=== PATIENT | male | born 1955 | race Hispanic/Latino ===

== ENCOUNTER 2018-09-07 06:32 | Observation (INO) | payer MEDICARE ==
[2018-09-06 12:19] LABS: BASOPHILS % 0.3 % (0.0-1.0); EOSINOPHILS # (AUTO) 0.2 (0.0-0.4); EOSINOPHILS % 2.4 % (0.0-6.0); HEMATOCRIT 38.7 % (38.2-49.6); HEMOGLOBIN 12.2 g/dL (14.0-18.0); LYMPHOCYTES # (AUTO) 1.6 (1.0-3.2); LYMPHOCYTES % 15.8 % (18.0-39.1); MEAN CORPUSCULAR HEMOGLOBIN 26.9 pg (28-32); MEAN CORPUSCULAR HGB CONC 31.5 g/dL (31-35); MEAN CORPUSCULAR VOLUME 85.2 fL (81-99); MONOCYTES # (AUTO) 0.7 (0.2-0.8); MONOCYTES % 6.9 % (4.4-11.3); NEUTROPHILS # (AUTO) 7.4 (2.1-6.9); NEUTROPHILS % 73.9 % (38.7-80.0); PLATELET COUNT 258 x10e3/uL (140-360); RED BLOOD COUNT 4.54 x10e6/uL (4.3-5.7); RED CELL DISTRIBUTION WIDTH 15.4 % (11.7-14.4)
[2018-09-06 12:47] LABS: INR 0.94; PROTHROMBIN TIME 13.1 seconds (11.9-14.5)
[2018-09-06 12:57] LABS: ALBUMIN 3.4 g/dL (3.5-5.0); ALBUMIN/GLOBULIN RATIO 0.9 (0.8-2.0); ANION GAP 11.2 mmol/L (8-16); CALCIUM 10.2 mg/dL (8.4-10.2); CREATININE, SERUM 1.31 mg/dL (0.72-1.25)
[2018-09-06 12:58] LABS: POTASSIUM 5.2 mmol/L (3.5-5.1)
[~2018-09-07] VITALS: Ht 175.3 cm; Wt 138.0 kg
[2018-09-07] VITALS (18 sets, daily range): BP systolic 134–179; BP diastolic 67–90
[~2018-09-07 06:32] MED LIST: ADVAIR 500/501 EA INH; ASPIR 8181 MG; CARVEDILOL12.5 MG PO; FUROSEMIDE40 MG PO; GABAPENTIN300 MG PO; HYDRALAZINE HCL25 MG PO; LEVEMIR100 UNIT/1; LOSARTAN POTASS25 MG; METFORMIN HCL500 M2 PO; MONTELUKAST SOD10 MG PO; NITROGLYCERIN0.4 MG SL; NOVOLOG MI100 UNIT/1; PLAVIX75 MG PO; PRAVASTATIN SOD40 MG; SPIRONOLACTONE25 MG PO; TAMSULOSIN HCL0.4 MG; VENTOLIN HFA18 GM
--- OUTSIDE RECORDS SUMMARY | 2018-09-07 06:34 | XMS REPORT | Summary of Care ---
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) Hypertension(Confirm Active ed) Hypertriglyceridemia Active (Confirmed) Microalbuminuria(Con Active firmed) Morbid Active obesity(Confirmed) Polyneuropathy, Active unspecified(Confirme d) Nocturia(Confirmed) Active Erectile Active dysfunction(Confirme d) Hx of < 03/06/17 Resolved CABG(Confirmed) Peripheral Active edema(Confirmed) Peripheral vascular Active disease(Confirmed) Chronic obstructive Active pulmonary disease, unspecified(Confirme d) DM type 2 causing Active CKD stage 3(Confirmed) Type 2 diabetes Active mellitus, uncontrolled(Confirm ed) Allergies, Adverse Reactions, Alerts Substance Reaction Severity Status Tylenol with Codeine #31 Active iodine Active traMADol2 Active 1stomach issues 2stomach issues Medications metFORMIN 500 mg oral tablet 500 mg=1 tab, PO, BID-Meals, # 180 tab, 1 Refill(s), Pharmacy: [id number] Start Date: 06/17/17 Stop Date: 12/14/17 Status: Ordered pravastatin 40 mg oral tablet 40 mg=1 tab, PO, Bedtime, # 90 tab, 1 Refill(s), Pharmacy: [facility] [id number] 4 Start Date: 06/17/17 Stop Date: 12/14/17 Status: Ordered Results No data available for this section Immunizations Given and Recorded Vaccine Date Status Refusal Reason Hx influenza vaccine-unspecified 05/06/17 Recorded Procedures Procedure Date Related Diagnosis Body Site Percutaneous transluminal angioplasty of 05/2017 peripheral artery CABG - Coronary artery bypass graft 2010 Gallbladder excision Social History Social History Type Response Substance Abuse Use: Past. Type: Heroin. Recreational Drug Route: Inhaled, Oral. Previous Treatment: None. Employment/School Status: disability. Work/School description: lives with sister, from [place], has lived in [place]. Other: has daughter, has gf. Alcohol Current, Type Beer. Frequency: 3-5 times per week. Previous treatment: None. Alcohol use interferes with work or home: No. Drinks more than intended: No. Others hurt by drinking: No. Ready to change: Yes. Household alcohol concerns: No. Smoking Status Former smoker; Type: Cigarettes; Ready to change: No; Concerns about tobacco use in household: Yes; Lives with someone who smokes; Cigarette Smoking Last 365 Days No; Reg Smoking Cessation Counseling Yes Assessment and Plan No data available for this section
--- OUTSIDE RECORDS SUMMARY | 2018-09-07 06:34 | XMS REPORT | Summary of Care ---
Author Author [facility] Organization [facility] Address Unknown Phone Unavailable Encounter HQ Sybil_joaquim(FIN) [id number] Date(s): 11/12/17 - 11/12/17 [facility] [address], [address] [place], [place] [address]- [phone] Discharge Disposition: Home or Self Care Attending Physician: Jamaica Aparicio DO Vital Signs Most recent to 1 oldest [Reference Range]: Height 175.26 cm (11/12/17 1:53 PM) Temperature Oral 98.2 DegF [96.4-99.1 DegF] (11/12/17 1:53 PM) Blood Pressure 105/61 mmHg [90-140/60-90 mmHg] (11/12/17 1:53 PM) Respiratory Rate 16 BRMIN [14-20 BRMIN] (11/12/17 1:53 PM) Peripheral Pulse 72 bpm Rate [60-100 bpm] (11/12/17 1:53 PM) Weight 142.273 kg (11/12/17 1:53 PM) Body Mass Index 46.32 m2 (11/12/17 1:53 PM) Problem List Condition Effective Dates Status Health Status Informant Allergic Active dermatitis(Confirmed ) Allergic Active rhinitis(Confirmed) CAD (coronary artery Active disease)(Confirmed) BPH associated with Active nocturia(Confirmed) Chronic Active pain(Confirmed) Diabetic Active neuropathy(Confirmed ) Non-compliance(Confi Active rmed) Body mass index Active (BMI) 45.0-49.9, adult(Confirmed) Chronic Active GERD(Confirmed) 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) Hypertension(Confirm Active ed) Hypertriglyceridemia Active (Confirmed) Microalbuminuria(Con Active firmed) Morbid Active obesity(Confirmed) Erectile Active dysfunction(Confirme d) Hx of < 03/06/17 Resolved CABG(Confirmed) Peripheral Active edema(Confirmed) Peripheral vascular Active disease(Confirmed) Chronic obstructive Active pulmonary disease, unspecified(Confirme d) DM type 2 causing Active CKD stage 3(Confirmed) Type 2 diabetes Active mellitus, uncontrolled(Confirm ed) Allergies, Adverse Reactions, Alerts Substance Reaction Severity Status Tylenol with Codeine #31 Active iodine Active traMADol2 Active 1stomach issues 2stomach issues Medications betamethasone valerate topical 0.12% foam 1 appl, TOP, BID, X 14 day, # 100 gm, 0 Refill(s), Pharmacy: [facility] [id number] 24 Start Date: 11/12/17 Stop Date: 11/26/17 Status: Ordered Bydureon Kit 2 mg subcutaneous injection, extended release 2 mg=1 vial, SUB-Q, qWeek, # 4 vial, 5 Refill(s), Pharmacy: [facility] 272 4 Start Date: 11/12/17 Stop Date: 11/13/17 Status: Completed Bydureon Kit 2 mg subcutaneous injection, extended release 2 mg=1 vial, SUB-Q, qWeek, # 4 vial, 5 Refill(s), Pharmacy: [facility] 272 4 Start Date: 11/13/17 Status: Ordered montelukast 10 mg oral tablet 10 mg=1 tab, PO, Bedtime, # 90 tab, 1 Refill(s), Pharmacy: [id number] Start Date: 11/12/17 Status: Ordered Results No data available for this section Immunizations Given and Recorded Vaccine Date Status Refusal Reason Hx influenza vaccine-unspecified 05/06/17 Recorded Hx pneumococcal vaccine 07/06/16 Recorded Procedures Procedure Date Related Diagnosis Body Site Status Percutaneous transluminal angioplasty of 05/2017 Completed peripheral artery Colonoscopy 2015 Completed CABG - Coronary artery bypass graft 2009 Completed Gallbladder excision Completed Social History Social History Type Response Substance Abuse Use: Past. Type: Heroin. Recreational Drug Route: Inhaled, Oral. Previous Treatment: None. Employment/School Status: disability. Work/School description: lives with sister, from [place], has lived in [place]. Other: has daughter, has gf. Alcohol Current, [...] Days No; Reg Smoking Cessation Counseling Yes entered on: 11/12/17 Assessment and Plan No data available for this section
--- OUTSIDE RECORDS SUMMARY | 2018-09-07 06:34 | XMS REPORT | Continuity of Care Document ---
Author Author [facility] Address Unknown Phone Unavailable Problems Problem Status Onset Date Classification Date Reported Comments Source UNK Active 01/28/2018 [facility] Hx of CABG Resolved 03/06/2017 Problem 09/05/2018 [facility] Allergic rhinitis Active Problem 12/22/2017 [facility] CAD (<span ID="[id number]">Confirmed</span>) Active Problem 09/05/2018 [facility] BPH associated with nocturia Active Problem 09/05/2018 [facility] Chronic pain Active Problem 09/05/2018 [facility] Constipation Active Problem 10/17/2017 [facility] Non-compliance Active Problem 12/22/2017 [facility] Dermatitis Active Problem 09/05/2018 [facility] Chronic GERD Active Problem 09/05/2018 [facility] Combined systolic and diastolic heart failure Active Problem 09/05/2018 [facility] Hypertension Active Problem 09/05/2018 [facility] Hypertriglyceridemia Active Problem 09/05/2018 [facility] Microalbuminuria Active Problem 09/05/2018 [facility] Morbid obesity Active Problem 09/05/2018 [facility] Polyneuropathy, unspecified Active Problem 10/17/2017 [facility] Erectile dysfunction Active Problem 09/05/2018 [facility] Peripheral edema Active Problem 09/05/2018 [facility] Peripheral vascular disease Active Problem 09/05/2018 [facility] Chronic obstructive pulmonary disease, unspecified Active Problem 12/22/2017 [facility] DM type 2 causing CKD stage 3 Active Problem 12/22/2017 [facility] Type 2 diabetes mellitus, uncontrolled Active Problem 09/05/2018 [facility] Anemia of chronic disease Active Problem 09/05/2018 [facility] Chest pain Resolved Problem 09/05/2018 [facility] COPD (<span ID="[id number]">Confirmed</span>) Active Problem 09/05/2018 [facility] Diabetic neuropathy Active Problem 09/05/2018 [facility] Diabetic nephropathy Active Problem 09/05/2018 [facility] Body mass index 45.0-49.9, adult(<span ID="[id number]">Confirmed</span>) Active Problem 09/05/2018 [facility] Heart failure Resolved Problem 09/05/2018 [facility] Insomnia Active Problem 09/05/2018 [facility] Tremor Active Problem 09/05/2018 [facility] Allergic dermatitis Active Problem 12/22/2017 [facility] Nocturia Active Problem 06/21/2017 [facility] NAHUN (<span ID="[id number]">Confirmed</span>) Active Problem 08/06/2018 [facility] Medications Medication Details Route Status Patient Instructions Ordering Provider Order Date Source Trazodone Hydrochloride 50 MG Oral Tablet See Instructions, 1-3 tabs at bedtime prn insomnia, # 90 tab, 2 Refill(s), Pharmacy: [place] [id number] Active 07/30/2018 [facility] Mupirocin 0.02 MG/MG Topical Ointment 1 appl, TOP, BID, X 10 day, # 22 gm, 2 Refill(s), Pharmacy: [facility] Active 07/30/2018 [facility] DME Prescription See Instructions, MISC, ONCE, dispense 1 disability license plate, # 1 unit, 0 Refill(s) No Longer Active 02/16/2018 [facility] RELION INS SYR 1/29G/12.7MM See Instructions, # 100 unknown unit, Refill(s) 11, USE ONE NEW SYRINGE SUBCUTANEOUSLY 4 TO 5 TIMES DAILY, Pharmacy: [place] [address] Active 02/08/2018 [facility] exenatide 3.08 MG/ML Injectable Suspension [Bydureon] 2 mg=1 vial, SUB-Q, qWeek, # 4 vial, 5 Refill(s), Pharmacy: [facility] 272 Active 11/14/2017 [facility] exenatide 3.08 MG/ML Injectable Suspension [Bydureon] 2 mg=1 vial, SUB-Q, qWeek, # 4 vial, 5 Refill(s), Pharmacy: [facility] 272 No Longer Active 11/12/2017 [facility] montelukast 10 mg oral tablet 10 mg=1 tab, PO, Bedtime, # 90 tab, 1 Refill(s), Pharmacy: [facility] Active 11/12/2017 [facility] Betamethasone valerate 1.2 MG/ML Topical Foam 1 appl, TOP, BID, X 14 day, # 100 gm, 0 Refill(s), Pharmacy: [facility] Active 11/12/2017 [facility] Blood Glucose Test Strips 1 box, MISC, TID-Before Meals, # 300 strip, 3 Refill(s) No Longer Active 09/14/2017 [facility] OneTouch Verio IQ Blood Glucose Meter 1 ea, MISC, ONCE, dispense 1 kit for blood glucose monitoring, # 1 ea, Insulin dependent, Does not use insulin pump, Last DM eval date 08/13/17, 0 Refill(s) Active 09/14/2017 [facility] pregabalin 150 MG Oral Capsule [Lyrica] 150 mg=1 cap, PO, BID, # 60 cap, 5 Refill(s) Active 08/13/2017 [facility] Fluticasone propionate 0.05 MG/ACTUAT Metered Dose Nasal [place] 1 spray, NASAL, Daily, # 3 ea, 3 Refill(s), Pharmacy: [facility] Active 08/13/2017 [facility] Metformin hydrochloride 1000 MG Oral Tablet 1,000 mg=1 tab, PO, BID-Meals, # 180 tab, 3 Refill(s), Pharmacy: [facility] Active 08/13/2017 [facility] insulin detemir 100 UNT/ML Injectable Solution [Levemir] 80 unit, SUB-Q, BID, # 5 vial, 5 Refill(s), Pharmacy: [facility] Active 07/01/2017 [facility] Nitroglycerin 0.4 MG Sublingual Tablet 0.4 mg=1 tab, SL, Q5Min, PRN Chest pain, Give up to 3 doses. Call 911 if pain persists., # 100 tab, 0 Refill(s) Active 06/24/2017 [facility] Nebulizer 1 ea, MISC, ONCALL, # 1 ea, 0 Refill(s) Active 06/24/2017 [facility] Nebulizer Supplies Misc/Other 1 ea, MISC, PRN, PRN As directed by physician, dispense mask and tubing for nebulizer, # 1 unit, 0 Refill(s) Active 06/24/2017 [facility] Albuterol 0.83 MG/ML Inhalant Solution 2.49 mg=3 mL, NEB, Q6H, PRN as needed for shortness of breath, # 120 ea, 5 Refill(s), Pharmacy: [facility] Active 06/24/2017 [facility] azithromycin 250 mg oral tablet 250 mg=1 tab, PO, Daily, take 2 tablets on the first day, 1 tablet daily to continue, X 5 day, # 6 tab, 0 Refill(s), Pharmacy: [facility] Active 06/24/2017 [facility] Albuterol 0.83 MG/ML Inhalant Solution 2.49 mg, Route: NEB, Drug form: SOLN, ONCE, Dosing Weight 144.545, kg, Start date: 06/24/17 10:36:00 [employer], Stop date: 06/24/17 10:36:00 [employer] CLERK Inactive 06/24/2017 [facility] tamsulosin 0.4 mg oral capsule 0.4 mg=1 cap, PO, Daily, # 90 cap, 1 Refill(s), Pharmacy: [facility] Active 06/24/2017 [facility] 12 HR ranolazine 500 MG Extended Release Tablet 500 mg=1 tab, PO, BID, # 60 tab, 0 Refill(s) Inactive 06/24/2017 [facility] Hydralazine Hydrochloride 50 MG Oral Tablet 50 mg=1 tab, PO, BID, # 120 tab, 0 Refill(s) Active 06/24/2017 [facility] pravastatin 40 mg oral tablet 40 mg=1 tab, PO, Bedtime, # 90 tab, 1 Refill(s), Pharmacy: [facility] Active 06/17/2017 [facility] Metformin hydrochloride 500 MG Oral Tablet 500 mg=1 tab, PO, BID-Meals, # 180 tab, 1 Refill(s), Pharmacy: [facility] Active 06/17/2017 [facility] Allergies, Adverse Reactions, Alerts Substance Category Reaction Severity Reaction type Status Date Reported Comments Source Tylenol with Codeine #3<sup>1</sup> Assertion Drug allergy Active stomach issues [facility] iodine Assertion Drug allergy Active [facility] traMADol<sup>2</sup> Assertion Drug allergy Active stomach issues [facility] Immunizations Immunization Date Given Site Status Last Updated Comments Source Hx influenza vaccine-unspecified 04/05/2018 completed [facility] Hx influenza vaccine-unspecified 05/06/2017 completed [facility] Hx pneumococcal vaccine 07/06/2016 completed [facility] Results Order Name Results Value Reference Range Date Interpretation Comments Source Chest 2 views DX Chest 2 views DX Patient Name: EZIO KINNEY : 1955; Age: 62 years y/o Male MR: [id number] * CHEST, 2 views HISTORY: Cough; preoperative study COMPARISON: None TECHNIQUE: Frontal and lateral radiographs of the chest were obtained. FINDINGS: There are poststernotomy changes. There is mild cardiomegaly. There is no overt failure. There is no evidence of an active or acute process within the chest. The lungs are clear. There are no pulmonary infiltrates or pleural effusions The regional skeleton is unremarkable. IMPRESSION: 1. No active disease. 2. Poststernotomy changes. 3. Mild cardiomegally. SL: [id number] 02/24/2018 - - Read by: Dago Sanford MD Dictated Date/time: 02/24/18 12:28 Electronically Signed by: Dago Sanford MD 02/24/18 12:29 FINAL REPORT [facility] Vital Signs Vital Sign Value Date Comments Source Weight 140.455 07/30/2018 [facility] BMI Calculated 45.73 07/30/2018 [facility] Height 175.26 cm 07/30/2018 [facility] Systolic (mm Hg) 146 07/30/2018 [facility] Diastolic (mm Hg) 83 07/30/2018 [facility] Temperature Oral (F) 98.2 F 07/30/2018 [facility] Respitory Rate 15 07/30/2018 [facility] Heart Rate 82 07/30/2018 [facility] BMI Calculated 45.87 02/16/2018 [facility] Height 175.26 cm 02/16/2018 [facility] Weight 140.909 02/16/2018 [facility] Respitory Rate 16 02/16/2018 [facility] Heart Rate 87 02/16/2018 [facility] Systolic (mm Hg) 108 02/16/2018 [facility] Diastolic (mm Hg) 69 02/16/2018 [facility] Temperature Oral (F) 98.2 F 11/12/2017 [facility] Respitory Rate 16 11/12/2017 [facility] Systolic (mm Hg) 105 11/12/2017 [facility] Diastolic (mm Hg) 61 11/12/2017 [facility] Heart Rate 72 11/12/2017 [facility] Height 175.26 cm 11/12/2017 [facility] Weight 142.273 11/12/2017 [facility] BMI Calculated 46.32 11/12/2017 [facility] Systolic (mm Hg) 136 08/13/2017 [facility] Diastolic (mm Hg) 77 08/13/2017 [facility] Respitory Rate 14 08/13/2017 [facility] Heart Rate 63 08/13/2017 [facility] Weight 146.364 08/13/2017 [facility] BMI Calculated 47.65 08/13/2017 [facility] Height 175.26 cm 08/13/2017 [facility] BMI Calculated 47.06 06/24/2017 [facility] Weight 144.545 06/24/2017 [facility] Systolic (mm Hg) 136 06/24/2017 [facility] Diastolic (mm Hg) 83 06/24/2017 [facility] Temperature Oral (F) 99.0 F 06/24/2017 [facility] Respitory Rate 14 06/24/2017 [facility] Heart Rate 95 06/24/2017 [facility] Height 175.26 cm 06/24/2017 [facility] Encounters Location Location Details Encounter Type Encounter Number Reason For Visit Attending Provider ADM Date DC Date Status Source Outpatient [id number] [facility] 07/08/2016 [facility] [id number] [facility] 08/08/2016 Active [facility] [id number] [facility] 09[facility]08/2016 Active [facility] [id number] [facility] 10/09/2016 Active [facility] [id number] [facility] 12/04/2016 Active [facility] [id number] [facility] 01[facility]07/2017 Active [facility] [id number] [facility] 01[facility]20/2017 Active [facility] [id number] [facility] 01[facility]28/2017 Active [facility] [id number] [facility] 01/29/2017 Active [facility] [id number] [facility] SANDSH 03/06/2017 Active [facility] [id number] [facility] CEDR[facility] 05/11/2017 Active [facility] [id number] [facility] STEELE 05/14/2017 Active [facility] Phone Message [id number] 06/17/2017 06/19/2017 [facility] Outpatient [id number] [facility] STEE[facility] 06/24/2017 Active [facility] Outpatient [id number] Tere Steele 06/24/2017 06/25/2017 [facility] Phone Message [id number] 07/01/2017 07/03/2017 [facility] Outpatient [id number] [facility] STEE[facility] 08/13/2017 Active [facility] Outpatient [id number] Tere Steele 08/13/2017 08/14/2017 [facility] Phone Message [id number] 09/14/2017 09/16/2017 [facility] Outpatient [id number] [facility]ERE STEELE 11/12/2017 Active [facility] Outpatient [id number] Tere Steele 11/12/2017 11/13/2017 [facility] Outpatient [id number] [facility]ERE STEELE 02/12/2018 Active [facility] Ambulatory Pre-Reg [id number] Tere Steele 02/12/2018 02/12/2018 [facility] Outpatient [id number] [facility]ERE STEELE 02/16/2018 Active [facility] Outpatient [id number] Tere Steele 02/16/2018 02/17/2018 [facility] Outpatient [id number] TERE STEELE 05/18/2018 Active [facility] [id number] TERE STEELE 07/13/2018 Active [facility] [id number] TERE STEELE 07/30/2018 Active [facility] Outpatient [id number] Tere Steele 07/30/2018 07/31/2018 [facility] Phone Message [id number] 08/02/2018 08/04/2018 [facility] Phone Message [id number] 08/12/2018 08/14/2018 [facility] Procedures Procedure Code Date Perfomer Comments Source Arteriography [id number] 05/06/2017 [facility] Percutaneous transluminal angioplasty of peripheral artery [id number] 05/06/2017 [facility] Colonoscopy [id number] 07/06/2015 [facility] CABG - Coronary artery bypass graft [id number] 07/06/2009 [facility] Gallbladder excision [id number] [facility] Cholecystectomy [id number] [facility]
--- OUTSIDE RECORDS SUMMARY | 2018-09-07 06:34 | XMS REPORT | Summary of Care ---
Author Author [facility] Organization [facility] Address Unknown Phone Unavailable Encounter HQ Lorie(FIN) [id number] Date(s): 08/13/17 - 08/13/17 [facility] [address], [address] [place], [place] [address]- [phone] Discharge Disposition: Home or Self Care Attending Physician: Jamaica Aparicio DO Vital Signs Most recent to 1 oldest [Reference Range]: Height 175.26 cm (08/13/17 10:43 AM) Blood Pressure 136/77 mmHg [90-140/60-90 mmHg] (08/13/17 10:43 AM) Respiratory Rate 14 BRMIN [14-20 BRMIN] (08/13/17 10:43 AM) Peripheral Pulse 63 bpm Rate [60-100 bpm] (08/13/17 10:43 AM) Weight 146.364 kg (08/13/17 10:43 AM) Body Mass Index 47.65 m2 (08/13/17 10:43 AM) Problem List Condition Effective Dates Status Health Status Informant Allergic Active rhinitis(Confirmed) CAD (coronary artery Active disease)(Confirmed) BPH associated with Active nocturia(Confirmed) Chronic Active pain(Confirmed) Constipation(Confirm Active ed) Non-compliance(Confi Active rmed) Dermatitis(Confirmed Active ) Chronic Active GERD(Confirmed) 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) Hypertension(Confirm Active ed) Hypertriglyceridemia Active (Confirmed) Microalbuminuria(Con Active firmed) Morbid Active obesity(Confirmed) Polyneuropathy, Active unspecified(Confirme d) Erectile Active dysfunction(Confirme d) Hx of < 03/06/17 Resolved CABG(Confirmed) Peripheral Active edema(Confirmed) Peripheral vascular Active disease(Confirmed) Chronic obstructive Active pulmonary disease, unspecified(Confirme d) DM type 2 causing Active CKD stage 3(Confirmed) Type 2 diabetes Active mellitus, uncontrolled(Confirm ed) Allergies, Adverse Reactions, Alerts Substance Reaction Severity Status Tylenol with Codeine #31 Active iodine Active traMADol2 Active 1stomach issues 2stomach issues Medications fluticasone nasal 0.05 mg/inh spray 1 spray, NASAL, Daily, # 3 ea, 3 Refill(s), Pharmacy: [id number] Start Date: 08/13/17 Stop Date: 08/08/18 Status: Ordered Lyrica 150 mg oral capsule 150 mg=1 cap, PO, BID, # 60 cap, 5 Refill(s) Start Date: 08/13/17 Status: Ordered metFORMIN 1000 mg oral tablet 1,000 mg=1 tab, PO, BID-Meals, # 180 tab, 3 Refill(s), Pharmacy: [id number] Start Date: 08/13/17 Stop Date: 08/08/18 Status: Ordered Results No data available for [...] disability. Work/School description: lives with sister, from [place], has lived in [place]. Other: has daughter, has gf. Alcohol Current, [...] Reg Smoking Cessation Counseling Yes entered on: 08/13/17 Assessment and Plan No data available for this section
--- OUTSIDE RECORDS SUMMARY | 2018-09-07 06:34 | XMS REPORT | Summary of Care ---
Author Author [facility] Organization [facility] Address Unknown Phone Unavailable Encounter HQ Sybil_joaquim(FIN) [id number] Date(s): 11/12/17 - 11/12/17 [facility] [address], [address] [place], [place] [address]- [phone] Discharge Disposition: Home or Self Care Attending [...] day, # 100 gm, 0 Refill(s), Pharmacy: [facility] 27 24 Start Date: 11/12/17 Stop Date: 11/26/17 Status: Ordered Bydureon Kit 2 mg subcutaneous injection, extended release 2 mg=1 vial, SUB-Q, qWeek, # 4 vial, 5 Refill(s), Pharmacy: [facility] [id number] 4 Start Date: 11/12/17 Stop Date: 11/13/17 Status: Completed Bydureon Kit 2 mg subcutaneous injection, extended release 2 mg=1 vial, SUB-Q, qWeek, # 4 vial, 5 Refill(s), Pharmacy: [facility] [id number] 4 Start Date: 11/13/17 Status: Ordered montelukast 10 mg oral tablet 10 mg=1 tab, PO, Bedtime, # 90 tab, 1 Refill(s), Pharmacy: [facility]24 Start Date: 11/12/17 Status: Ordered [...] disability. Work/School description: lives with sister, from [place], has lived in [place]. Other: has daughter, has gf. Alcohol Current, [...]
--- OUTSIDE RECORDS SUMMARY | 2018-09-07 06:34 | XMS REPORT | Summary of Care ---
Author Author [facility] Organization [facility] Address Unknown Phone Unavailable Encounter HQ Jaxntr_joaquim(FIN) [id number] Date(s): 07/01/17 - 07/02/17 [facility] [address] [place] [address], [address] [place], [place] [address]- [phone] Vital Signs No data available for this section Problem List Condition Effective Dates Status Health Status Informant CAD (coronary artery Active disease)(Confirmed) BPH associated with Active nocturia(Confirmed) Constipation(Confirm Active ed) Non-compliance(Confi Active rmed) Dermatitis(Confirmed [...] traMADol2 Active 1stomach issues 2stomach issues Medications Levemir 100 units/mL 80 unit, SUB-Q, BID, # 5 vial, 5 Refill(s), Pharmacy: [id number] Start Date: 07/01/17 Status: Ordered Results No data available for [...] disability. Work/School description: lives with sister, from [place], has lived in [place]. Other: has daughter, has gf. Alcohol Current, [...]
--- OUTSIDE RECORDS SUMMARY | 2018-09-07 06:34 | XMS REPORT | Summary of Care ---
Author Author [facility] Organization [facility] Address Unknown Phone Unavailable Encounter HQ Jodir_joaquim(FIN) [id number] Date(s): 02/12/18 - 02/12/18 [facility] [address], [address] [place], [place] [address]- [phone] Attending Physician: Jamaica Aparicio DO Vital Signs No data available for this section Problem List Condition Effective Dates Status Health Status Informant Anemia of chronic Active disease(Confirmed) CAD (coronary artery Active disease)(Confirmed) BPH associated with Active nocturia(Confirmed) Chest Resolved pain(Confirmed) COPD (chronic Active obstructive pulmonary disease)(Confirmed) Chronic Active pain(Confirmed) Diabetic Active neuropathy(Confirmed ) Diabetic Active nephropathy(Confirme d) Dermatitis(Confirmed Active ) Body mass index Active (BMI) 45.0-49.9, adult(Confirmed) Chronic Active GERD(Confirmed) Heart Resolved failure(Confirmed) 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) Hypertension(Confirm Active ed) Hypertriglyceridemia Active (Confirmed) Insomnia(Confirmed) Active Microalbuminuria(Con Active firmed) Morbid Active obesity(Confirmed) Erectile Active dysfunction(Confirme d) Hx of < 03/06/17 Resolved CABG(Confirmed) Peripheral Active edema(Confirmed) Peripheral vascular Active disease(Confirmed) Tremor(Confirmed) Active Type 2 diabetes Active mellitus, uncontrolled(Confirm ed) Allergies, Adverse Reactions, Alerts Substance Reaction Severity Status iodine Active Medications RELION INS SYR 1/29G/12.7MM See Instructions, # 100 unknown unit, Refill(s) 11, USE ONE NEW SYRINGE SUBCUTAN EOUSLY 4 TO 5 TIMES DAILY, Pharmacy: [id number] Start Date: 02/08/18 Status: Ordered Results No data available for this section Immunizations Given and Recorded Vaccine Date Status Refusal Reason Hx influenza vaccine-unspecified 04/05/18 Recorded Hx influenza vaccine-unspecified 05/06/17 Recorded Hx pneumococcal vaccine 07/06/16 Recorded Procedures Procedure Date Related Diagnosis Body Site Status Arteriography 05/06/17 Completed Percutaneous transluminal angioplasty of 05/2017 Completed peripheral artery Colonoscopy 2015 Completed CABG - Coronary artery bypass graft 2009 Completed Cholecystectomy Completed Social History Social History Type Response Substance Abuse Use: Past. Type: Heroin. Recreational Drug Route: Inhaled, Oral. Previous Treatment: None. Employment/School Status: disability. Work/School description: lives with sister, from [place], has lived in [place]. Other: has daughter, has gf. Alcohol Current, [...] Reg Smoking Cessation Counseling Yes entered on: 07/30/18 Assessment and Plan No data available for this section
--- OUTSIDE RECORDS SUMMARY | 2018-09-07 06:34 | XMS REPORT | Summary of Care ---
Author Author [facility] Organization [facility] Address Unknown Phone Unavailable Encounter HQ Lorie(FIN) [id number] Date(s): 02/16/18 - 02/16/18 [facility] [address], [address] [place], [place] [address]- [phone] Discharge Disposition: Home or Self Care Attending Physician: Jamaica Aparicio DO Vital Signs Most recent to 1 oldest [Reference Range]: Height 175.26 cm (02/16/18 2:14 PM) Blood Pressure 108/69 mmHg [90-140/60-90 mmHg] (02/16/18 2:14 PM) Respiratory Rate 16 BRMIN [14-20 BRMIN] (02/16/18 2:14 PM) Peripheral Pulse 87 bpm Rate [60-100 bpm] (02/16/18 2:14 PM) Weight 140.909 kg (02/16/18 2:14 PM) Body Mass Index 45.87 m2 (02/16/18 2:14 PM) Problem List Condition Effective Dates Status [...] Substance Reaction Severity Status iodine Active Medications DME Prescription See Instructions, MISC, ONCE, dispense 1 disability [address] plate, # 1 unit, 0 R efill(s) Start Date: 02/16/18 Stop Date: 05/18/18 Status: Discontinued Results No data available for this section [...] disability. Work/School description: lives with sister, from [place], has lived in [place]. Other: has daughter, has gf. Alcohol Current, [...]
--- OUTSIDE RECORDS SUMMARY | 2018-09-07 06:34 | XMS REPORT | Summary of Care ---
Author Author [facility] Organization [facility] Address Unknown Phone Unavailable Encounter HQ Sybil_joaquim(FIN) [id number] Date(s): 06/24/17 - 06/24/17 [facility] [address], [address] [place] [address] [phone] Discharge Disposition: Home or Self Care Attending Physician: Jamaica Aparicio DO Vital Signs Most recent to 1 oldest [Reference Range]: Height 175.26 cm (06/24/17 9:50 AM) Temperature Oral 99.0 DegF [96.4-99.1 DegF] (06/24/17 9:50 AM) Blood Pressure 136/83 mmHg [90-140/60-90 mmHg] (06/24/17 9:50 AM) Respiratory Rate 14 BRMIN [14-20 BRMIN] (06/24/17 9:50 AM) Peripheral Pulse 95 bpm Rate [60-100 bpm] (06/24/17 9:50 AM) Weight 144.545 kg (06/24/17 9:50 AM) Body Mass Index 47.06 m2 (06/24/17 9:50 AM) Problem List Condition Effective Dates Status [...] traMADol2 Active 1stomach issues 2stomach issues Medications albuterol 0.083% inhalation solution 2.49 mg, Route: NEB, Drug form: SOLN, ONCE, Dosing Weight 144.545, kg, Start aleksandr e: 06/24/17 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, Stop date: 06/24/17 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 Start Date: 06/24/17 Stop Date: 06/24/17 Status: Completed albuterol 0.083% inhalation solution 2.49 mg=3 mL, NEB, Q6H, PRN as needed for shortness of breath, # 120 ea, 5 Refil l(s), Pharmacy: [id number] Start Date: 06/24/17 Stop Date: 12/21/17 Status: Ordered azithromycin 250 mg oral tablet 250 mg=1 tab, PO, Daily, take 2 tablets on the first day, 1 tablet daily to cont inue, X 5 day, # 6 tab, 0 Refill(s), Pharmacy: [facility] Start Date: 06/24/17 Stop Date: 06/29/17 Status: Ordered hydrALAZINE 50 mg oral tablet 50 mg=1 tab, PO, BID, # 120 tab, 0 Refill(s) Start Date: 06/24/17 Status: Ordered Nebulizer 1 ea, MISC, ONCALL, # 1 ea, 0 Refill(s) Start Date: 06/24/17 Status: Ordered Nebulizer Supplies Misc/Other 1 ea, MISC, PRN, PRN As directed by physician, dispense mask and tubing for nebu lizer, # 1 unit, 0 Refill(s) Start Date: 06/24/17 Stop Date: 06/24/18 Status: Ordered nitroglycerin 0.4 mg sublingual tablet 0.4 mg=1 tab, SL, Q5Min, PRN Chest pain, Give up to 3 doses. Call 911 if pain pe rsists., # 100 tab, 0 Refill(s) Start Date: 06/24/17 Status: Ordered ranolazine 500 mg oral tablet, extended release 500 mg=1 tab, PO, BID, # 60 tab, 0 Refill(s) Start Date: 06/24/17 Stop Date: 06/24/17 Status: Discontinued tamsulosin 0.4 mg oral capsule 0.4 mg=1 cap, PO, Daily, # 90 cap, 1 Refill(s), Pharmacy: [id number] Start Date: 06/24/17 Status: Ordered Results No data available for this section Immunizations Given and Recorded Vaccine Date Status Refusal Reason Hx influenza vaccine-unspecified 05/06/17 Recorded Hx pneumococcal vaccine 07/06/16 Recorded Procedures Procedure Date Related Diagnosis Body Site Percutaneous transluminal angioplasty of 05/2017 peripheral artery CABG - Coronary artery bypass graft 2009 Gallbladder excision Social History Social History Type Response Substance Abuse Use: Past. Type: Heroin. Recreational Drug Route: Inhaled, Oral. Previous Treatment: None. Employment/School Status: disability. Work/School description: lives with sister, from [place], has lived in [place]. Other: has daughter, [...]
--- OUTSIDE RECORDS SUMMARY | 2018-09-07 06:34 | XMS REPORT | Summary of Care ---
Author Author [facility] Organization [facility] Address Unknown Phone Unavailable Encounter HQ Lorie(FIN) [id number] Date(s): 09/14/17 - 09/15/17 [facility] [address], [address] [place], [place] [address]- [phone] Vital Signs No data available for this [...] traMADol2 Active 1stomach issues 2stomach issues Medications Blood Glucose Test Strips 1 box, MISC, TID-Before Meals, # 300 strip, 3 Refill(s) Start Date: 09/14/17 Stop Date: 11/12/17 Status: Discontinued OneTouch Verio IQ Blood Glucose Meter 1 ea, MISC, ONCE, dispense 1 kit for blood glucose monitoring, # 1 ea, Insulin d ependent, Does not use insulin pump, Last DM eval date 08/13/17, 0 Refill(s) Start Date: 09/14/17 Status: Ordered Results No data available for [...] disability. Work/School description: lives with sister, from [place], has lived in [place]. Other: has daughter, [...]
--- OUTSIDE RECORDS SUMMARY | 2018-09-07 06:34 | XMS REPORT | Summary of Care ---
Author Author [facility] Organization [facility] Address Unknown Phone Unavailable Encounter HQ Lorie(FIN) [id number] Date(s): 08/13/17 - 08/13/17 [facility] [address], [address] [place], [place] [address]- [phone] Discharge Disposition: Home or Self Care Attending [...] Daily, # 3 ea, 3 Refill(s), Pharmacy: [facility] [id number] Start Date: 08/13/17 Stop Date: 08/08/18 Status: Ordered Lyrica 150 mg oral capsule 150 mg=1 cap, PO, BID, # 60 cap, 5 Refill(s) Start Date: 08/13/17 Status: Ordered metFORMIN 1000 mg oral tablet 1,000 mg=1 tab, PO, BID-Meals, # 180 tab, 3 Refill(s), Pharmacy: [id number] Start Date: 08/13/17 Stop Date: 08/08/18 Status: [...] disability. Work/School description: lives with sister, from [place], has lived in [place]. Other: has daughter, has gf. Alcohol Current, [...]
--- OUTSIDE RECORDS SUMMARY | 2018-09-07 06:35 | XMS REPORT | Summary of Care ---
Author Author [facility] Organization [facility] Address Unknown Phone Unavailable Encounter HQ Sybil_joaquim(FIN) [id number] Date(s): 08/12/18 - 08/13/18 [facility] [address], [address] [place] [address] [phone] Vital Signs No data available for this [...] Substance Reaction Severity Status iodine Active Medications No data available for this section Results No data available for this section [...] disability. Work/School description: lives with sister, from [place], has lived in [place]. Other: has daughter, has gf. Alcohol Current, [...]
--- OUTSIDE RECORDS SUMMARY | 2018-09-07 06:35 | XMS REPORT | Summary of Care ---
Author Author [facility] Organization [facility] Address Unknown Phone Unavailable Encounter HQ Jodir_joaquim(FIN) [id number] Date(s): 08/02/18 - 08/03/18 [facility] [address], [address] [place], [place] [address]- [phone] Vital Signs No data available for this [...] failure(Confirmed) Hypertension(Confirm Active ed) Hypertriglyceridemia Active (Confirmed) NAHUN (acute kidney Active injury)(Confirmed) Insomnia(Confirmed) Active Microalbuminuria(Con Active firmed) Morbid Active [...] disability. Work/School description: lives with sister, from [place], has lived in [place]. Other: has daughter, [...]
--- OUTSIDE RECORDS SUMMARY | 2018-09-07 06:35 | XMS REPORT | Summary of Care ---
Author Author [facility] Organization [facility] Address Unknown Phone Unavailable Encounter HQ Sybil_joaquim(FIN) [id number] Date(s): 07/30/18 - 07/30/18 [facility] [address], [address] [place], [place] [address]- [phone] Discharge Disposition: Home or Self Care Attending Physician: Jamaica Aparicio DO Vital Signs Most recent to 1 oldest [Reference Range]: Height 175.26 cm (07/30/18 10:43 AM) Temperature Oral 98.2 DegF [96.4-99.1 DegF] (07/30/18 10:43 AM) Blood Pressure 146/83 mmHg [90-140/60-90 mmHg] *HI* (07/30/18 10:43 AM) Respiratory Rate 15 BRMIN [14-20 BRMIN] (07/30/18 10:43 AM) Peripheral Pulse 82 bpm Rate [60-100 bpm] (07/30/18 10:43 AM) Weight 140.455 kg (07/30/18 10:43 AM) Body Mass Index 45.73 m2 (07/30/18 10:43 AM) Problem List Condition Effective Dates [...] Substance Reaction Severity Status iodine Active Medications mupirocin topical 2% ointment 1 appl, TOP, BID, X 10 day, # 22 gm, 2 Refill(s), Pharmacy: [facility] [id number] Start Date: 07/30/18 Stop Date: 08/29/18 Status: Ordered trazodone 50 mg oral tablet See Instructions, 1-3 tabs at bedtime prn insomnia, # 90 tab, 2 Refill(s), Pharm acy: [facility] [id number] Start Date: 07/30/18 Status: Ordered Results No data available for [...] disability. Work/School description: lives with sister, from [place], has lived in [place]. Other: has daughter, has gf. Alcohol Current, [...]
--- OUTSIDE RECORDS SUMMARY | 2018-09-07 06:35 | XMS REPORT ---
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 Allergies, Adverse Reactions, Alerts Allergy Name Allergy Type Status Severity Reaction(s) Onset Date Inactive Date Treating Clinician Comments iodine DA Active U 2018-07-13 00:00:00 iodine DA Active U 2017-06-01 00:00:00 Medications This patient has no known medications.
[2018-09-07] MEDS ORDERED: HEPARIN SOD (PORCINE) 1000 UNIT/ML 30ML ONE (07:39)
[2018-09-07] MEDS ORDERED: MIDAZOLAM HCL 2 MG/2 ML VIAL ONE ×2 (07:39→08:34)
[2018-09-07] MEDS ORDERED: HEPARIN SOD/SOD CHLORIDE 2,000 ML ONE (07:40)
[2018-09-07] MEDS ORDERED: LIDOCAINE HCL 1% LOCAL INJ 20 ML VIAL ONE (07:40)
[2018-09-07] MEDS ORDERED: FENTANYL CITRATE/PF 100MCG/2 ML INJ ONE (07:40)
[2018-09-07] MEDS ORDERED: SODIUM CHLORIDE 0.9% 1000ML 1,000 ML ONE ×3 (07:40→13:07)
[2018-09-07] MEDS ORDERED: IOPAMIDOL 300MG/ML 100 ML INFUS..BTL IV ONE ×2 (07:40→08:38)
[2018-09-07] MEDS ORDERED: NITROGLYCERIN/D5W 200 MCG/ML 250 ML ONE (07:40)
[2018-09-07] MEDS ORDERED: DIPHENHYDRAMINE HCL INJ 50 MG/ML VIAL ONE (07:44)
[2018-09-07] MEDS ORDERED: VERAPAMIL HCL 2.5 MG/ML 2 ML VIAL ONE (08:20)
[2018-09-07] MEDS ORDERED: TICAGRELOR 90 MG TABLET ONE (08:55)
[2018-09-07] MEDS ORDERED: ASPIRIN 325 MG TAB ONE (08:55)
[2018-09-07] MEDS ORDERED: HYDRALAZINE HCL 20 MG/ML VIAL ONE (13:07)
--- NOTE | 2018-09-07 14:01 | NUR ---
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 Family at bedside Reviewed POC and has dc papers and prescription for home pharmacist. Rt Groin vascade site w/o s/s hematoma or bleeding. Resp deep and regular at 99%. Room air denies necessity to defecate or urinate. Bilateral PPx4 1+ palpable x4. Monitor SB w/o ectopics. Tolerating po intake for dc at 1600pm. eder/woody
[2018-09-07] MEDS ORDERED: ATROPINE SULFATE 0.1 MG/ML 10ML SYR ONE (14:23)
[2018-09-07] MEDS ORDERED: MORPHINE SULFATE INJ 4 MG/ML INJ 1ML ONE (14:27)
--- NOTE | 2018-09-07 15:00 | NUR ---
bedside report received from Cristi Kirk RN. Alert oriented and appropriate, PERRLA, respirations even and unlabored to room air. Pulses x4 extremities equal and strong. Pedal pulses PT/DP palpable and marked. Cap fill brisk < 3 sec. 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 Ecchymotic, non swelling, friable skin. bilateral lower extremities with rubra ecchymotic type presentation that patient explains as "diabetic legs", bilateral arms with skin lesions as patient states "its my psoriasis acting up". Skin warm and dry integrity appears otherwise intact. IV 20g to let hand presents healthy w/o s/s of infiltration or complaint. Abdomen soft and supple. pt offered toileting, denies need to urinate or defecate. Personal affects with patient. Family not available. Pt verbalizes understanding of POC. Currently w/o complaint of pain or need. Patient w/ call light within reach -cgf
--- NOTE | 2018-09-07 15:20 | NUR ---
Sheath pull complete. Review of groin. Margins outlined, dressing CDI. Remain tummy tuck at this time. HOB flat. patient denies sob, cp, or need. verbalizes understanding of bed rest. - cgf
--- NOTE | 2018-09-07 16:11 | Operative Report ---
DATE OF PROCEDURE: 09/07/2018 SURGEON: Musa Block MD INDICATION: Peripheral arterial disease and claudication. PROCEDURES PERFORMED: 1. Abdominal aorta catheter placement and abdominal aortogram. 2. Unilateral extremity angiogram of the right lower extremity with catheter placement from the left femoral artery to the right superficial femoral artery (third-order catheter placement). 3. Additional vessel angiogram from the left femoral artery to the right posterior tibial artery. 4. Atherectomy and balloon angioplasty of the right popliteal artery. 5. Atherectomy and balloon angioplasty of the right posterior tibial artery. 6. Secondary thrombectomy of the right posterior tibial artery. COMPLICATIONS: None. RECOMMENDATIONS: Dual antiplatelet therapy for at least six months. Access obtained of the left femoral artery using ultrasound guidance with a 6-Yakut sheath placed. Abdominal aortogram demonstrated widely patent abdominal aorta and iliacs bilaterally. Proximal femoral artery on the right leg appeared to be patent. Distal vessel could not be seen. The catheter was then advanced from the left femoral artery to the right superficial femoral artery (third-order catheter replacement). Anterior tibial artery was occluded. Popliteal artery had an 80% stenosis. The right posterior tibial artery had 95% tandem stenosis at the origin of the peroneal artery with two-vessel runoff to the right foot. A decision was made to intervene on the right popliteal and posterior tibial artery. The patient received 10,000 units of intravenous heparin with an ACT of 318. The lesion was crossed using a Glidewire and the wire was exchanged to a Viper wire. Orbital atherectomy of the popliteal as well as the posterior tibial arteries was performed in the posterior tibial artery. Large amounts of thrombus were noted for which manual aspiration secondary thrombectomy was needed. Balloon angioplasty of the posterior tibial vessel with 3 mm balloon and balloon angioplasty of the right popliteal artery with a 4 mm drug-coated balloon was performed. Excellent end result two vessel runoff to the right foot. No complication. Sheath was secured in place for removal under manual pressure. The patient was transferred to the floor in stable condition for overnight hydration as well as observation. Musa Block MD KSB/MODL /[id number]
[2018-09-07] MEDS ORDERED: DEXTROSE 50% SYRINGE 50 ML IV PRN (17:15)
[2018-09-07] MEDS ORDERED: HYDRALAZINE HCL 20 MG/ML VIAL IV PRN (17:15)
[2018-09-07] MEDS ORDERED: MORPHINE SULFATE 2 MG/ML SYR 1ML IV PRN (17:15)
--- NOTE | 2018-09-07 17:30 | NUR ---
Patient w/ evening meal. repositioned. no changes in groin presentation. warm blanket provided for comfort. Pt denies further needs. VS trend WNL. awaiting room assignment
[2018-09-07] MEDS: GABAPENTIN 300 MG CAP PO SCH (19:09)
--- NOTE | 2018-09-07 19:27 | NUR ---
room available [facility]. Phone report off to Damon BARCLAY. Left extremities assessed for s/s of complication and increased presence of hematoma. let lef warm, dry, no further discolor, and pulses present. IV left hand appears healthy and intact. VS WNL. Voided 1000ml. Pt denies pain except for neuropathy related to lower extremities which Neurontin was given for. denies sob, or need at this time. Family not available. Review of admission and follow up instructions. verbalized understanding. Pt to transported to [facility] on telemetry #3. Transferred w/o incident with belongings.
--- NOTE | 2018-09-07 19:50 | NUR ---
Patient arrives to unit with large bruise to left groin site from rn cardiac cath procedure. No dense areas noted on palpation of site. Patient on bedrest until 2129. Will continue to monitor.
[2018-09-07] MEDS: MORPHINE SULFATE INJ 4 MG/ML INJ 1ML IV PRN ×2 (20:09→23:30)
--- NOTE | 2018-09-07 22:10 | NUR ---
Left groin site bruise has grown slightly and still has no dense areas on palpation. [place] pulse is weak but palpable. Will continue to monitor.
[2018-09-08] VITALS: BP 114/53
[2018-09-08 04:00] VITALS: BP 162/73
[2018-09-08 05:42] LABS: BASOPHILS % 0.2 % (0.0-1.0); EOSINOPHILS % 0.2 % (0.0-6.0); HEMATOCRIT 34.6 % (38.2-49.6); LYMPHOCYTES # (AUTO) 1.5 (1.0-3.2); LYMPHOCYTES % 12.2 % (18.0-39.1); MEAN CORPUSCULAR HEMOGLOBIN 26.5 pg (28-32); MEAN CORPUSCULAR HGB CONC 31.8 g/dL (31-35); MEAN CORPUSCULAR VOLUME 83.4 fL (81-99); MONOCYTES % 8.3 % (4.4-11.3); NEUTROPHILS # (AUTO) 9.7 (2.1-6.9); NEUTROPHILS % 78.2 % (38.7-80.0); PLATELET COUNT 243 x10e3/uL (140-360); RED BLOOD COUNT 4.15 x10e6/uL (4.3-5.7); RED CELL DISTRIBUTION WIDTH 15.4 % (11.7-14.4)
[2018-09-08 06:02] LABS: ANION GAP 13.2 mmol/L (8-16); BLOOD UREA NITROGEN 24 mg/dL (7-26); BUN/CREATININE RATIO 21 (6-25); CARBON DIOXIDE 25 mmol/L (22-29); CHLORIDE 100 mmol/L (98-107); CREATININE, SERUM 1.16 mg/dL (0.72-1.25); EST GLOMERULAR FILTRATION RATE > 60 ML/MIN (60-); GLUCOSE 290 mg/dL (74-118); POTASSIUM 4.2 mmol/L (3.5-5.1); SODIUM 134 mmol/L (136-145)
--- NOTE | 2018-09-08 07:35 | NUR ---
patient resting in bed AAOx3, denies any chest pain or SOB, left groin bruise getting reduce from the marked line, feels soft, no tenderness,
[2018-09-08 07:42] VITALS: BP 155/76
[2018-09-08] MEDS: GABAPENTIN 300 MG CAP PO SCH (08:33)
[2018-09-08 09:44] VITALS: BP 155/76
[2018-09-08 11:49] VITALS: BP 160/74
--- NOTE | 2018-09-08 12:41 | NUR ---
Dr Bob in [facility] , had rounds, stated patient can be discharge home and follow up with Dr Block in 1 week,
--- NOTE | 2018-09-08 13:15 | NUR ---
patient discharged home, IV canula removed with tip intact , no ss of infiltration, tele box returned, No prescriptions as per Dr Bob, patient aware about f/up appointments. Left groin still have bruises around and Dr Dumas aware of it . patient denies any pain , no distress noted[facility] son at bed side to give ride
--- NOTE | 2018-09-08 15:52 | NUR ---
SOCIAL WORK INITIAL ASSESSMENT [employer] to bedside to discuss plan of care with patient/family. CM/SW role and care transitions discussed. Anticipated discharge plan discussed along with duration of care. CM/SW discussed patients right to make decisions in care. CM/SW work hours given. Patient lives: IN HOUSE WITH SISTER Admit/Transfer: VIA ED POA/Emergency contact: SHELDON [phone] Current/Previous Home Health: [facility] COMES OUT 1 TIME A MONTH TO SEE PCP/Follow-up Care: KARTHIK Current/Previous DME: NONE Other Services: NONE Employment Status: DISABLED Areas of Concerns: NONE Referral Needs: NONE Education Needs: NONE IMM/KABA given and signed (if applicable): KABA Goal for discharge: RETURN HOME CM/SW left business card at the bedside with contact information. Name and number was also written on the patients whiteboard. Patient verbalized understanding of discussion. CM will follow-up with ongoing discharge and transition of care needs.
== END 2018-09-08 13:09 | disposition home or self-care (01) ==
LOC: CATH LAB 06:32 → CATH LAB V 08:42 → IMCU 19:47
PROVIDERS: ADMIT Internal Medicine Interventional Cardiology; ATTEND Internal Medicine Interventional Cardiology
DX: I70.211 Atherosclerosis of native arteries of extremities with intermittent claudication, right leg (principal); Z01.812 Encounter for preprocedural laboratory examination; I25.708 Atherosclerosis of coronary artery bypass graft(s), unspecified, with other forms of angina pectoris; I10 Essential (primary) hypertension; I87.2 Venous insufficiency (chronic) (peripheral); Z79.4 Long term (current) use of insulin; J44.9 Chronic obstructive pulmonary disease, unspecified; E78.00 Pure hypercholesterolemia, unspecified; E11.9 Type 2 diabetes mellitus without complications; Z83.3 Family history of diabetes mellitus; Z82.49 Family history of ischemic heart disease and other diseases of the circulatory system; Z91.048 Other nonmedicinal substance allergy status
CPT/HCPCS: 36415 ×3; 37186; 37225; 37229; 75625; 75710; 80048; 80053; 82948; 85025 ×2; 85347; 85610; C1724; C1725 ×2; C1769 ×3; C1887; G0378 ×2; J0360; J1200; J1644; J2001; J2250; J2270; J7030; Q9967; 36247

== ENCOUNTER → 2019-12-15 | Day surgery (SDC) | payer MEDICARE, OTHER ==
[2019-12-12 10:30] LABS: BASOPHILS % 0.3 % (0.0-1.0); EOSINOPHILS # (AUTO) 0.2 (0.0-0.4); EOSINOPHILS % 1.9 % (0.0-6.0); HEMATOCRIT 37.3 % (38.2-49.6); HEMOGLOBIN 11.5 g/dL (14.0-18.0); LYMPHOCYTES # (AUTO) 1.5 (1.0-3.2); LYMPHOCYTES % 15.1 % (18.0-39.1); MEAN CORPUSCULAR HEMOGLOBIN 24.4 pg (28-32); MEAN CORPUSCULAR HGB CONC 30.8 g/dL (31-35); MONOCYTES # (AUTO) 0.8 (0.2-0.8); MONOCYTES % 7.9 % (4.4-11.3); NEUTROPHILS # (AUTO) 7.4 (2.1-6.9); NEUTROPHILS % 74.1 % (38.7-80.0); PLATELET COUNT 269 x10e3/uL (140-360); RED BLOOD COUNT 4.72 x10e6/uL (4.3-5.7); RED CELL DISTRIBUTION WIDTH 18.1 % (11.7-14.4)
[~2019-12-15] MED LIST changes: +ALBUTEROL/IPRATROPIUM 3 ML NEB ONE; +BYDUREON P2 MG/0.65 SC; +CLOPIDOGREL75 MG PO; +ETOMIDATE 2 MG/ML 10 ML INJ IV ONE; +FAMOTIDINE 20 MG/2 ML VIAL IV ONE; +FLOMAX0.4 MG PO; +GLYCOPYRROLATE INJ 0.2 MG/ML VIAL ONE; +LEVOCETIRIZINE D5 MG PO; +LIDOCAINE HCL 2% JELLY 5 ML TUBE ONE; +LIDOCAINE HCL 2% LOCAL INJ 5 ML SDV VIAL INJ ONE; +METOCLOPRAMIDE HCL 10 MG/2ML VIAL ONE; +ONDANSETRON HCL INJ 2MG/ML 2ML 2 MG/ML VIAL ONE; +ONDANSETRON2 MG/1 ML PO; -PRAVASTATIN SOD40 MG; +PRAVASTATIN SOD40 MG PO; +SEVOFLURANE INHAL SOLN 250 ML PEN BTL ONE; +SKYRIZI75 MG/0.83 SC; +SUCCINYLCHOLINE CHLORIDE 20 MG/ML 10ML VIAL ONE; +TRELEGY ELLIPT1 EACH PO
[2019-12-15 10:05] VITALS: BP 172/76
== END | disposition home or self-care (01) ==
LOC: OR 05:25
PROVIDERS: ATTEND Internal Medicine Gastroenterology
DX: Z12.11 Encounter for screening for malignant neoplasm of colon (principal); K29.50 Unspecified chronic gastritis without bleeding; K20.9 Esophagitis, unspecified; K44.9 Diaphragmatic hernia without obstruction or gangrene; K21.9 Gastro-esophageal reflux disease without esophagitis; K64.8 Other hemorrhoids; Z71.3 Dietary counseling and surveillance; E66.01 Morbid (severe) obesity due to excess calories; E11.9 Type 2 diabetes mellitus without complications; J44.9 Chronic obstructive pulmonary disease, unspecified; I25.810 Atherosclerosis of coronary artery bypass graft(s) without angina pectoris; I11.0 Hypertensive heart disease with heart failure; I50.9 Heart failure, unspecified; F41.9 Anxiety disorder, unspecified; Z91.041 Radiographic dye allergy status; Z01.810 Encounter for preprocedural cardiovascular examination; Z01.812 Encounter for preprocedural laboratory examination; Z11.59 Encounter for screening for other viral diseases; Z79.84 Long term (current) use of oral hypoglycemic drugs; Z79.02 Long term (current) use of antithrombotics/antiplatelets; Z79.4 Long term (current) use of insulin; Z68.42 Body mass index [BMI] 45.0-49.9, adult; Z95.1 Presence of aortocoronary bypass graft
CPT/HCPCS: 43233; 43239; G0121; 36415; 45378; 82948; 85025; 87106; 87205; 87635; 88305; 88312; 93005; J0330; J2001; J2405; J2765